=== PATIENT | female | born 1985 | race American Indian/Alaskan Native ===

== ENCOUNTER 2017-02-09 20:59 | Inpatient (IN) | payer OTHER ==
--- NOTE | 2017-02-10 01:28 | Emergency Department Report ---
HPI - General Chief Complaint: Altered Mental Status Time Seen by Provider: 02/10/17 01:14 - HPI HPI: Room 3 The patient is a 31-year-old female presenting with a chief complaint of lightheadedness and chest pain. The patient states for one week she is intermittent lightheadedness associated with feeling as though she is "detached " from reality. The patient states these symptoms usually come about as she is up and moving around. The patient states today she developed intermittent substernal chest heaviness associated with shortness of breath. Patient denies nausea/vomiting or diaphoresis. The patient states she's never had a stress test or cardiac catheterization Location: [see above] Duration: [see above] Quality: Heaviness Severity: Moderate Modifying factors: [see above] Context: [see above] Mode of transportation: [not driving] ED Past Medical Hx - Past Medical History Hx Psychiatric Treatment: Yes (anxiety) - Surgical History Past Surgical History?: No - Family History Family history: no significant - Social History Smoking Status: Never Smoker Substance Use Type: None (denies illicit drug use), Alcohol (occasional) - Medications Home Medications: Home Medications Medication Instructions Recorded Confirmed Last Taken Type Magnesium Oxide 250 mg PO QHS 02/10/17 02/10/17 Unknown History Sertraline HCl [Zoloft] 150 mg PO QDAY 02/10/17 02/10/17 Unknown History ED Review of Systems ROS: Stated complaint: SOB, CONFUSION Other details as noted in HPI Comment: All other systems reviewed and negative Constitutional: denies: chills, diaphoresis, fever Eyes: denies: eye pain, eye discharge, vision change ENT: denies: ear pain, throat pain Respiratory: shortness of breath Cardiovascular: chest pain Endocrine: no symptoms reported Gastrointestinal: denies: abdominal pain, nausea, diarrhea Genitourinary: denies: urgency, dysuria, discharge Musculoskeletal: denies: back pain, joint swelling, arthralgia Skin: denies: rash, lesions Neurological: other (lightheadedness). denies: headache Psychiatric: denies: anxiety, depression Hematological/Lymphatic: denies: easy bleeding, easy bruising Physical Exam - Physical Exam Vital Signs: Vital Signs 02/09/17 02/10/17 21:09 00:26 Temperature 99.3 F 99.1 F Pulse Rate 83 64 Respiratory 20 14 Rate Blood Pressure 129/81 Blood Pressure 121/70 [Left] O2 Sat by Pulse 99 99 Oximetry Physical Exam: GENERAL: The patient is well-developed well-nourished female lying on stretcher not appearing to be in acute distress. [] HEENT: Normocephalic. Atraumatic. Extraocular motions are intact. Patient has moist mucous membranes. NECK: Supple. No meningitic signs are noted. Trachea midline CHEST/LUNGS: Clear to auscultation. There is no respiratory distress noted. HEART/CARDIOVASCULAR: Regular. There is no tachycardia. There is no gallop rub or murmur. ABDOMEN: Abdomen is soft, nontender. Patient has normal bowel sounds. There is no abdominal distention. SKIN: There is no rash. There is no edema. There is no diaphoresis. NEURO: The patient is awake, alert, and oriented. The patient is cooperative. The patient has no focal neurologic deficits. The patient has normal speech. Cranial nerves II through XII grossly intact, no drift MUSCULOSKELETAL: There is no evidence of acute injury. ED Course Vital Signs 02/09/17 02/10/17 21:09 00:26 Temperature 99.3 F 99.1 F Pulse Rate 83 64 Respiratory 20 14 Rate Blood Pressure 129/81 Blood Pressure 121/70 [Left] O2 Sat by Pulse 99 99 Oximetry ED Medical Decision Making - Lab Data Result diagrams: 02/10/17 01:24 02/10/17 01:24 Laboratory Tests 02/10/17 02/10/17 02/10/17 01:24 01:24 01:24 WBC 7.0 RBC 5.21 H Hgb 14.8 H Hct 46.0 H MCV 88 MCH 28 MCHC 32 RDW 12.7 L Plt Count 296 Lymph % (Auto) 38.2 H [place] % (Auto) 5.0 Eos % (Auto) 0.7 Baso % (Auto) 0.6 Lymph # 2.7 [place] # 0.4 Eos # 0.0 Baso # 0.0 Seg Neutrophils % 55.5 Seg Neutrophils # 3.9 Sodium 139 Potassium 4.3 Chloride 100.9 Carbon Dioxide 24 Anion Gap 18 BUN 14 Creatinine 0.7 Estimated GFR > 60 BUN/Creatinine Ratio 20 Glucose 86 Calcium 9.5 Total Creatine Kinase 61 CK-MB (CK-2) < 1.0 CK-MB (CK-2) Rel Index 1.6 Troponin T < 0.010 HCG, Qual Negative - EKG Data -: EKG Interpreted by Me EKG shows normal: sinus rhythm Rate: normal - EKG Data When compared to previous EKG there are: previous EKG unavailable Interpretation: other (no ischemic changes seen) - Radiology Data Radiology results: report reviewed (CT head), image reviewed (chest x-ray, CT head) interpreted by me: Chest x-ray-no focal infiltrates, no pneumothorax CT head (read by radiologist)-normal examination - Differential Diagnosis ACS, GERD, pericarditis, ICH, migraine, vertigo Critical care attestation.: If time is entered above; I have spent that time in minutes in the direct care of this critically ill patient, excluding procedure time. ED Disposition Clinical Impression: Chest heaviness, Lightheadedness Disposition: 09 OP ADMIT IP TO THIS HOSP Is pt being admited?: Yes Does the pt Need Aspirin: Yes Condition: Fair Instructions: Chest Pain (ED) Referrals: CRAIG MEZA MD [Other] - 3-5 Days Time of Disposition: 03:40 (hospitalist paged)
[2017-02-10 01:43] LABS: Basophils % (Auto) 0.6 % (0.0-1.8); Eosinophils % (Auto) 0.7 % (0.0-4.3); Hemoglobin 14.8 gm/dl (10.1-14.3); Mean Corpuscular HGB Conc 32 % (30-34); Mean Corpuscular Hemoglobin 28 pg (28-32); Mean Corpuscular Volume 88 fl (79-97); Red Blood Count 5.21 M/mm3 (3.65-5.03); Red Cell Distribution Width 12.7 % (13.2-15.2)
[2017-02-10 01:54] LABS: Platelet Count 296 K/mm3 (140-440)
[2017-02-10 02:25] LABS: Creatine Kinase MB < 1.0 ng/mL (0.0-4.0)
[2017-02-10 02:26] LABS: Anion Gap 18 mmol/L; BUN/Creatinine Ratio 20; Blood Urea Nitrogen 14 mg/dL (7-17); Calcium 9.5 mg/dL (8.4-10.2); Carbon Dioxide 24 mmol/L (22-30); Chloride 100.9 mmol/L (98-107); Creatine Kinase 61 units/L (30-135); Glucose 86 mg/dL (65-100); Potassium 4.3 mmol/L (3.6-5.0); Sodium 139 mmol/L (137-145)
--- NOTE | 2017-02-10 03:33 | Cat Scan Report ---
FINAL REPORT PROCEDURE: CT HEAD/BRAIN WO CON TECHNIQUE: Computerized tomography of the head was performed without contrast material. HISTORY: lightheadedness COMPARISON: No prior studies are available for comparison. FINDINGS: Skull and scalp: Normal. Paranasal sinuses: Normal. Ventricles and subarachnoid spaces: Normal. Cerebrum: No evidence of hemorrhage, acute infarction or mass . Cerebellum and brainstem: No evidence of hemorrhage, acute infarction or mass. Vasculature: Normal. Comments: None. IMPRESSION: Normal Examination
--- NOTE | 2017-02-10 07:50 | XRay Report ---
Single view chest: History: Chest pain. Findings: Normal cardiomediastinal silhouette the trachea is midline. No consolidation, pneumothorax or pleural effusion. Impression: No acute cardiopulmonary findings.
[2017-02-10] MEDS ORDERED: MILK OF MAGNESIA PO PRN (09:00)
[2017-02-10] MEDS ORDERED: MORPHINE IV PRN (09:00)
[2017-02-10] MEDS ORDERED: TYLENOL PO PRN (09:00)
[2017-02-10] MEDS ORDERED: NITROSTAT SL PRN (09:00)
[2017-02-10] MEDS ORDERED: DULCOLAX PR PRN (10:00)
[2017-02-10] MEDS ORDERED: SERTRALINE HCL 150 MG PO SCH (10:00)
[2017-02-10] MEDS: ASPIRIN PO SCH (12:37)
[2017-02-10] MEDS: ZOLOFT PO SCH ×2 (13:42)
--- NOTE | 2017-02-10 15:28 | History and Physical Report ---
<KLAUS BARONE - Last Filed: 02/10/17 15:35> History of Present Illness Date of examination: 02/10/17 Date of admission: 02/10/17 08:32 Chief complaint: Chest Pain History of present illness: Patient is a 31-year-old black female with a past medical history of anxiety who presents to emergency department for complaining of Midsternal chest pain.Until yesterday patient was at her normal baseline state of health. She states that the pain began yesterday intermittent left side chest pain. The pain was located over her substerna somewhat in the left epigastric area. Patient described as, heaviness and tightness chest pain non- radiating. The pain lasted for few hours. Pain increased with palpation, there is no reliving factors. The painful episodes did not increase in intensity or severity during this time. The patient denies chest pain at present time. She denies vomiting during these episodes of pain. Patient reported nausea and diaphoresis including feeling clammy. Also developed difficulty of breathing. She continued to have several episodes of the pain throughout the night, he decided to come to the emergency department. Past History Past Medical History: other (anxiety) Past Surgical History: No surgical history Social history: denies: smoking, alcohol abuse Family history: diabetes, hypertension Medications and Allergies Allergies Allergy/AdvReac Type Severity Reaction Status Date / Time No Known Allergies Allergy Verified 02/09/17 21:11 Home Medications Medication Instructions Recorded Confirmed Last Taken Type Magnesium Oxide 250 mg PO QHS 02/10/17 02/10/17 Unknown History Sertraline HCl [Zoloft] 150 mg PO QDAY 02/10/17 02/10/17 Unknown History Active Meds: Active Medications Acetaminophen (Tylenol) 650 mg PO Q4H PRN PRN Reason: Pain MILD(1-3)/Fever >100.5/ERNANDEZ Aspirin (Aspirin) 325 mg PO DAILY [facility] Last Admin: 02/10/17 12:37 Dose: 325 mg Bisacodyl (Dulcolax) [address] QDAY PRN PRN Reason: Constipation unrelieved by MOM Magnesium Hydroxide (Milk Of Magnesia) 30 ml PO Q4H PRN PRN Reason: Constipation Miscellaneous Medication (Magnesium Oxide [Magnesium Oxide]) 250 mg PO QHS [facility] Morphine Sulfate (Morphine) 2 mg IV Q4H PRN PRN Reason: Pain, Moderate (4-6) Nitroglycerin (Nitrostat) 0.4 mg SL .Q5MIN PRN PRN Reason: Chest Pain Sertraline HCl (Zoloft) 100 mg PO QDAY [facility] Last Admin: 02/10/17 13:42 Dose: 100 mg Sertraline HCl (Zoloft) 50 mg PO QDAY [facility] Last Admin: 02/10/17 13:42 Dose: 50 mg Review of Systems Constitutional: no weight loss, no weight gain, no fever, no chills, no sweats, no night sweats Ears, nose, mouth and throat: no ear pain, no ear discharge, no tinnitis, no decreased hearing, no nose pain Breasts: no change in shape, no swelling Cardiovascular: chest pain, shortness of breath, dyspnea on exertion, no orthopnea, no palpitations, no rapid/irregular heart beat, no edema, no syncope , no lightheadedness Respiratory: no cough with sputum, no excessive sputum, no hemoptysis, no shortness of breath Gastrointestinal: no nausea, no vomiting, no diarrhea, no constipation, no change in bowel habits Genitourinary Female: no pelvic pain, no flank pain, no menorrhagia, no dysuria , no urinary frequency, no urgency Menstruation: no period heavy Rectal: no incontinence, no bleeding Musculoskeletal: no neck pain, no shooting arm pain, no arm numbness/tingling, no shooting leg pain Neurological: no paralysis, no weakness, no parathesias, no numbness, no tingling Psychiatric: no change in sleep habits, no sleep disturbances, no insomnia, no hypersomnia, no change in appetite Endocrine: no polyphagia, no excessive thirst, no polydipsia, no polyuria Hematologic/Lymphatic: no easy bruising, no easy bleeding Allergic/Immunologic: no urticaria, no allergic rhinitis, no wheezing Exam - Constitutional Vitals: Temp Pulse Resp BP Pulse Ox 99.1 F 72 17 105/63 100 02/10/17 00:26 02/10/17 13:31 02/10/17 13:31 02/10/17 13:31 02/10/17 13:31 General appearance: Present: mild distress - EENT Eyes: Present: PERRL ENT: hearing intact - Neck Neck: Present: supple - Respiratory Respiratory effort: normal Respiratory: bilateral: CTA - Cardiovascular Rhythm: regular Heart Sounds: Present: S1 & S2 - Extremities Extremities: no ischemia Peripheral Pulses: within normal limits - Abdominal General gastrointestinal: Present: soft, non-tender Female genitourinary: Present: deferred - Rectal Rectal Exam: deferred - Integumentary Integumentary: Present: clear, warm, dry - Musculoskeletal Musculoskeletal: strength equal bilaterally - Psychiatric Psychiatric: appropriate mood/affect - Neurologic Neurologic: CNII-XII intact - Allied Health Allied health notes reviewed: nursing Results - Labs CBC & Chem 7: 02/10/17 01:24 02/10/17 01:24 Labs: Laboratory Last Values WBC 7.0 K/mm3 (4.5-11.0) 02/10/17 01:24 RBC 5.21 M/mm3 (3.65-5.03) H 02/10/17 01:24 Hgb 14.8 gm/dl (10.1-14.3) H 02/10/17 01:24 Hct 46.0 % (30.3-42.9) H 02/10/17 01:24 MCV 88 fl (79-97) 02/10/17 01:24 MCH 28 pg (28-32) 02/10/17 01:24 MCHC 32 % (30-34) 02/10/17 01:24 RDW 12.7 % (13.2-15.2) L 02/10/17 01:24 Plt Count 296 K/mm3 (140-440) 02/10/17 01:24 Lymph % (Auto) 38.2 % (13.4-35.0) H 02/10/17 01:24 [place] % (Auto) 5.0 % (0.0-7.3) 02/10/17 01:24 Eos % (Auto) 0.7 % (0.0-4.3) 02/10/17 01:24 Baso % (Auto) 0.6 % (0.0-1.8) 02/10/17 01:24 Lymph # 2.7 K/mm3 (1.2-5.4) 02/10/17 01:24 [place] # 0.4 K/mm3 (0.0-0.8) 02/10/17 01:24 Eos # 0.0 K/mm3 (0.0-0.4) 02/10/17 01:24 Baso # 0.0 K/mm3 (0.0-0.1) 02/10/17 01:24 Seg Neutrophils % 55.5 % (40.0-70.0) 02/10/17 01:24 Seg Neutrophils # 3.9 K/mm3 (1.8-7.7) 02/10/17 01:24 Sodium 139 mmol/L (137-145) 02/10/17 01:24 Potassium 4.3 mmol/L (3.6-5.0) 02/10/17 01:24 Chloride 100.9 mmol/L (98-107) 02/10/17 01:24 Carbon Dioxide 24 mmol/L (22-30) 02/10/17 01:24 Anion Gap 18 mmol/L 02/10/17 01:24 BUN 14 mg/dL (7-17) 02/10/17 01:24 Creatinine 0.7 mg/dL (0.7-1.2) 02/10/17 01:24 Estimated GFR > 60 ml/min 02/10/17 01:24 BUN/Creatinine Ratio 20 % 02/10/17 01:24 Glucose 86 mg/dL (65-100) 02/10/17 01:24 Calcium 9.5 mg/dL (8.4-10.2) 02/10/17 01:24 Total Creatine Kinase 61 units/L (30-135) 02/10/17 01:24 CK-MB (CK-2) < 1.0 ng/mL (0.0-4.0) 02/10/17 01:24 CK-MB (CK-2) Rel Index 1.6 (0-4) 02/10/17 01:24 Troponin T < 0.010 ng/mL (0.00-0.029) 02/10/17 12:00 HCG, Qual Negative (Negative) 02/10/17 01:24 Assessment and Plan Assessment and plan: ASSESSMENT/PLAN Chest Pain We will admit to telemetry floor. EKG normal sinus rate [address] elevation or T-wave inversion. Negative cardiac enzyme X3 Start on aspirin Nitroglycerin when necessary Morphine ordered for pain Nothing by mouth after midnight. Stress test ordered. Anxiety Resume Zoloft and magnesium. DVT prophylaxis Lovenox Advance Directives: Yes VTE prophylaxis?: Chemical Contraindication Mechanical VTE Prophylaxis: Treatment Not Indicated Plan of care discussed with patient/family: Yes <TRAVIS OCHOA R - Last Filed: 02/11/17 10:42> History of Present Illness Date of admission: 02/10/17 08:32 Medications and Allergies Active Meds: Active Medications Acetaminophen (Tylenol) 650 mg PO Q4H PRN PRN Reason: Pain MILD(1-3)/Fever >100.5/ERNANDEZ Last Admin: 02/10/17 22:45 Dose: 650 mg Albuterol (Proventil) 2.5 mg IH Q6HRT [facility] Last Admin: 02/11/17 08:39 Dose: Not Given Aspirin (Aspirin) 325 mg PO DAILY [facility] Last Admin: 02/10/17 12:37 Dose: 325 mg Bisacodyl (Dulcolax) [address] QDAY PRN PRN Reason: Constipation unrelieved by MOM Lorazepam (Ativan) 0.5 mg IV Q6H PRN PRN Reason: Anxiety Last Admin: 02/10/17 23:08 Dose: 0.25 mg Magnesium Hydroxide (Milk Of Magnesia) 30 ml PO Q4H PRN PRN Reason: Constipation Magnesium Oxide (Mag-Ox) 400 mg PO QHS [facility] Last Admin: 02/10/17 22:46 Dose: 400 mg Morphine Sulfate (Morphine) 2 mg IV Q4H PRN PRN Reason: Pain, Moderate (4-6) Nitroglycerin (Nitrostat) 0.4 mg SL .Q5MIN PRN PRN Reason: Chest Pain Pneumococcal Polyvalent Vaccine (Pneumovax 23) 0.5 ml IM .ONCE ONE Stop: 02/11/17 12:01 Sertraline HCl (Zoloft) 100 mg PO QDAY [facility] Last Admin: 02/10/17 13:42 Dose: 100 mg Sertraline HCl (Zoloft) 50 mg PO QDAY [facility] Last Admin: 02/10/17 13:42 Dose: 50 mg Exam - Constitutional Vitals: Temp Pulse Resp BP Pulse Ox 98.2 F 85 19 101/59 99 02/11/17 05:17 02/11/17 01:38 02/11/17 05:17 02/11/17 05:17 02/11/17 05:17 Results - Labs CBC & Chem 7: 02/11/17 04:59 02/11/17 04:59 Labs: Laboratory Last Values WBC 6.3 K/mm3 (4.5-11.0) 02/11/17 04:59 RBC 4.56 M/mm3 (3.65-5.03) 02/11/17 04:59 Hgb 13.4 gm/dl (10.1-14.3) 02/11/17 04:59 Hct 40.2 % (30.3-42.9) 02/11/17 04:59 MCV 88 fl (79-97) 02/11/17 04:59 MCH 29 pg (28-32) 02/11/17 04:59 MCHC 33 % (30-34) 02/11/17 04:59 RDW 13.0 % (13.2-15.2) L 02/11/17 04:59 Plt Count 251 K/mm3 (140-440) 02/11/17 04:59 Lymph % (Auto) 35.7 % (13.4-35.0) H 02/11/17 04:59 [place] % (Auto) 7.4 % (0.0-7.3) H 02/11/17 04:59 Eos % (Auto) 0.4 % (0.0-4.3) 02/11/17 04:59 Baso % (Auto) 0.5 % (0.0-1.8) 02/11/17 04:59 Lymph # 2.2 K/mm3 (1.2-5.4) 02/11/17 04:59 [place] # 0.5 K/mm3 (0.0-0.8) 02/11/17 04:59 Eos # 0.0 K/mm3 (0.0-0.4) 02/11/17 04:59 Baso # 0.0 K/mm3 (0.0-0.1) 02/11/17 04:59 Seg Neutrophils % 56.0 % (40.0-70.0) 02/11/17 04:59 Seg Neutrophils # 3.5 K/mm3 (1.8-7.7) 02/11/17 04:59 Sodium 141 mmol/L (137-145) 02/11/17 04:59 Potassium 3.8 mmol/L (3.6-5.0) 02/11/17 04:59 Chloride 103.0 mmol/L (98-107) 02/11/17 04:59 Carbon Dioxide 22 mmol/L (22-30) 02/11/17 04:59 Anion Gap 20 mmol/L 02/11/17 04:59 BUN 16 mg/dL (7-17) 02/11/17 04:59 Creatinine 0.7 mg/dL (0.7-1.2) 02/11/17 04:59 Estimated GFR > 60 ml/min 02/11/17 04:59 BUN/Creatinine Ratio 23 % 02/11/17 04:59 Glucose 99 mg/dL (65-100) 02/11/17 04:59 Calcium 8.9 mg/dL (8.4-10.2) 02/11/17 04:59 Total Creatine Kinase 61 units/L (30-135) 02/10/17 01:24 CK-MB (CK-2) < 1.0 ng/mL (0.0-4.0) 02/10/17 01:24 CK-MB (CK-2) Rel Index 1.6 (0-4) 02/10/17 01:24 Troponin T < 0.010 ng/mL (0.00-0.029) 02/10/17 12:00 HCG, Qual Negative (Negative) 02/10/17 01:24 Assessment and Plan Assessment and plan: I saw and evaluated the patient on 02/10/17. I agree with the findings and the plan of care as documented in the Nurse Practitioner's~note.
[2017-02-10] MEDS: PROVENTIL IH SCH (20:26)
[2017-02-10] MEDS ORDERED: PROVENTIL IH ONE (20:28)
[2017-02-10] MEDS ORDERED: MAGNESIUM OXIDE 250 MG PO SCH (22:00)
[2017-02-10] MEDS: MAG-OX PO SCH (22:46)
[2017-02-10] MEDS ORDERED: ATIVAN IV PRN (22:49)
[2017-02-11] MEDS: PROVENTIL IH SCH ×4 (01:37→20:05)
[2017-02-11 05:35] LABS: Basophils % (Auto) 0.5 % (0.0-1.8); Eosinophils % (Auto) 0.4 % (0.0-4.3); Hematocrit 40.2 % (30.3-42.9); Hemoglobin 13.4 gm/dl (10.1-14.3); Mean Corpuscular HGB Conc 33 % (30-34); Mean Corpuscular Hemoglobin 29 pg (28-32); Mean Corpuscular Volume 88 fl (79-97); Platelet Count 251 K/mm3 (140-440); Red Blood Count 4.56 M/mm3 (3.65-5.03); White Blood Count 6.3 K/mm3 (4.5-11.0)
[2017-02-11 05:49] LABS: Anion Gap 20 mmol/L; BUN/Creatinine Ratio 23; Blood Urea Nitrogen 16 mg/dL (7-17); Calcium 8.9 mg/dL (8.4-10.2); Carbon Dioxide 22 mmol/L (22-30); Glucose 99 mg/dL (65-100); Potassium 3.8 mmol/L (3.6-5.0); Sodium 141 mmol/L (137-145)
[2017-02-11] MEDS ORDERED: PROVENTIL IH ONE (11:20)
[2017-02-11] MEDS ORDERED: PNEUMOVAX 23 IM ONE (12:00)
[2017-02-11] MEDS: ASPIRIN PO SCH (12:06)
[2017-02-11] MEDS: ZOLOFT PO SCH ×6 (12:07→21:22)
--- NOTE | 2017-02-11 13:28 | Discharge Summary ---
<KLAUS BARONE - Last Filed: 02/11/17 13:48> Providers - Providers Date of Admission: 02/10/17 08:32 Date of discharge: 02/11/17 Attending physician: TRAVIS OCHOA Hospitalization Condition: Good Hospital course: Patient is a 31-year-old black female with a past medical history of anxiety who presents to emergency department for complaining of Midsternal chest pain.Until yesterday patient was at her normal baseline state of health. She states that the pain began yesterday intermittent left side chest pain. The pain was located over her substerna somewhat in the left epigastric area. Patient was diagnosed with chest pain and anxiety.Patient presented with atypical chest pain, ACS was ruled out, stress test normal MPI, negative cardiac enzymes, ECGs shows normal sinus rythm, CXR was wnl. Patient chest pain probably from musculoskeletal. She was treated with IV fluid and antiaxiety. She is being discharged on oral Ibuprofen. Patient is clinically improved and no chest pain at present time. Patient advised to follow-up with her primary care provider. Discharge Diagnosed Chest Pain due to Costochondritis Anxiety Disposition: DC- TO HOME OR SELFCARE Time spent for discharge: 33 minutes Core Measure Documentation - Palliative Care Palliative Care/ Comfort Measures: Not Applicable - Core Measures Any of the following diagnoses?: none Exam - Constitutional Vitals: Temp Pulse Resp BP Pulse Ox 98.2 F 81 20 101/59 99 02/11/17 05:17 02/11/17 11:50 02/11/17 11:45 02/11/17 05:17 02/11/17 10:00 General appearance: Present: no acute distress - EENT Eyes: Present: PERRL ENT: hearing intact, clear oral mucosa - Neck Neck: Present: supple - Respiratory Respiratory effort: normal Respiratory: bilateral: CTA - Cardiovascular Rhythm: regular Heart Sounds: Present: S1 & S2 - Extremities Extremities: no ischemia Peripheral Pulses: within normal limits - Abdominal General gastrointestinal: Present: soft, non-tender Female genitourinary: Present: deferred - Rectal Rectal Exam: deferred - Integumentary Integumentary: Present: clear, warm, dry - Musculoskeletal Musculoskeletal: strength equal bilaterally - Psychiatric Psychiatric: appropriate mood/affect - Neurologic Neurologic: CNII-XII intact - Allied Health Allied health notes reviewed: nursing Plan Activity: no restrictions Weight Bearing Status: Weight Bear as Tolerated Diet: low fat Follow up with: CRAIG MEZA MD [Other] - 3-5 Days Prescriptions: ALBUTEROL NEB's [Proventil 0.083% NEBS] 2.5 mg IH Q6HRT #30 nebu <TRAVIS OCHOA - Last Filed: 02/11/17 17:27> Providers - Providers Date of Admission: 02/10/17 08:32 Attending physician: TRAVIS OCHOA Exam - Constitutional Vitals: Temp Pulse Resp BP Pulse Ox 98.2 F 88 16 109/67 99 02/11/17 17:21 02/11/17 17:21 02/11/17 17:21 02/11/17 17:21 02/11/17 17:21 Plan Durable Medical Equipment Needed Upon Discharge: Nebulizer
--- NOTE | 2017-02-11 14:17 | Treadmill Report ---
NUCLEAR PERFUSION STUDY REASON FOR STUDY: Shortness of breath. READING PHYSICIAN: Papa Jimenez MD IMAGING PROTOCOL: The patient received 10 mCi of Technetium 99m Tetrofosmin for resting image and 28 mCi of Technetium 99m Tetrofosmin for stress imaging. The imaging for the whole procedure was completed 30-90 minutes following the initial injection of Technetium 99m tetrofosmin. The SPECT imaging in the 180 degree arc was performed in the right anterior oblique projection. Computerized reconstruction of the images was performed for analysis. IMAGING RESULTS: Normal cavity size from stress to rest. Normal distribution of radionuclide in the anterior, inferior, septal, and apical regions. Gated SPECT, EF 62% with no wall motion abnormalities. The patient exercised on Flip protocol for 8 minutes and 30 seconds. The patient had no EKG changes. SUMMARY: 1. Negative treadmill EKG. 2. Fair to good exercise capacity 8 minutes 30 seconds on Flip protocol. 3. No exaggerated BP response to exercise. 4. Normal rest and stress myocardial perfusion scan. No significant stress ischemia. No wall motion abnormality. Gated SPECT, ejection fraction 62%. JOB# [id number] JOHNSON/SAMANTHA
[2017-02-11 19:57] VITALS: BP 108/51
[2017-02-11] MEDS: MAG-OX PO SCH (21:22)
== END 2017-02-11 22:15 | disposition home or self-care (01) | DRG 206 ==
LOC: ED 20:59 → 4A 02-10 08:32
PROVIDERS: ADMIT Internal Medicine; ATTEND Internal Medicine
PROC: 3E0234Z Introduction of Serum, Toxoid and Vaccine into Muscle, Percutaneous Approach (ICD-10-PCS; principal; 2017-02-11)
DX: M94.0 Chondrocostal junction syndrome [Tietze] (principal); F41.9 Anxiety disorder, unspecified; Z23 Encounter for immunization; Z72.89 Other problems related to lifestyle; Z79.899 Other long term (current) drug therapy; Z82.49 Family history of ischemic heart disease and other diseases of the circulatory system; Z83.3 Family history of diabetes mellitus
CPT/HCPCS: 36415; 70450; 71010; 78452; 80048; 82550; 82553; 84484; 84703; 85025; 90732; 93005; 93010; 93017; 94640; 94760; A9502; J2060; J2270

== ENCOUNTER 2021-05-15 22:57 | Emergency (ER) | payer OTHER ==
[2021-05-16 06:09] LABS: Basophils % (Auto) 0.3 % (0.0-1.8); Eosinophils % (Auto) 0.8 % (0.0-4.3); Hematocrit 43.3 % (30.3-42.9); Hemoglobin 13.9 gm/dl (10.1-14.3); Lymphocytes # (Auto) 2.4 K/mm3 (1.2-5.4); Lymphocytes % (Auto) 40.8 % (13.4-35.0); Mean Corpuscular HGB Conc 32 % (30-34); Mean Corpuscular Volume 89 fl (79-97); Monocytes # (Auto) 0.4 K/mm3 (0.0-0.8); Monocytes % (Auto) 6.4 % (0.0-7.3); Platelet Count 327 K/mm3 (140-440); Red Blood Count 4.88 M/mm3 (3.65-5.03); Red Cell Distribution Width 14.3 % (13.2-15.2)
--- NOTE | 2021-05-16 06:19 | Event Note ---
ED Screening Note Date of service: 05/16/21 Time: 06:17 ED Screening Note: Patient is a 36-year-old -[place] female with no past medical history who complains of persistent intermittent lightheadedness, generalized weakness, and "feeling out of it". Patient states that she had similar feeling a while ago before being diagnosed with COVID-19 viral infection. Patient states that her symptoms have worsened in the last 2 days such that she feels "foggy and disoriented". Patient denies dizziness, syncope, chest pain, shortness of breath, nausea vomiting or diarrhea, abdominal pain, fever, chills, cough or seizures. This initial assessment/diagnostic orders/clinical plan/treatment(s) is/are subject to change based on patients health status, clinical progression and re- assessment by fellow clinical providers in the ED. Further treatment and workup at subsequent clinical providers discretion. Patient/guardian urged not to elope from the ED as their condition may be serious if not clinically assessed and managed. Initial orders include: CBC, CMP, UA, chest x-ray, hCG serum
[2021-05-16 06:28] LABS: Bilirubin,Urine NEG (Negative); Blood,Urine LG (Negative); Color,Urine Yellow (Yellow); Mucus,Urine FEW /HPF; Protein,Urine <15 mg/dL mg/dL (Negative); Urobilinogen,Urine < 2.0 mg/dL (<2.0)
[2021-05-16 06:32] LABS: Alanine Aminotransferase 14 units/L (7-56); Albumin 4.3 g/dL (3.9-5); Blood Urea Nitrogen 10 mg/dL (7-17); Calcium 9.7 mg/dL (8.4-10.2); Hemolysis Index 4
[2021-05-16 06:44] LABS: BUN/Creatinine Ratio 14
--- NOTE | 2021-05-16 07:05 | XRay Report ---
CHEST 1 VIEW INDICATION: cough. COMPARISON: 02/10/2017 FINDINGS: SUPPORT DEVICES: None. HEART: Within normal limits. LUNGS/PLEURA: No acute air space or interstitial disease. ADDITIONAL FINDINGS: None. IMPRESSION: 1. No acute findings. Signer Name: Titi Yip MD Signed: 05/16/2021 7:01 AM Workstation Name: [id number]
--- NOTE | 2021-05-16 07:39 | Emergency Department Report ---
ED General Adult HPI - General Chief complaint: Dizziness Stated complaint: DIZZINESS Time Seen by Provider: 05/16/21 07:28 Source: patient Mode of arrival: Ambulatory Limitations: No Limitations - History of Present Illness Initial comments: Patient is 36 years old female with no significant past medical history except for anxiety. Patient presented to the ER complaining of several weeks of dizziness and confusion. Patient denied any chest pain or shortness of breath. No weakness numbness or tingling sensation. Patient also denied any fever chi lls, abdominal pain, nausea or vomiting. Patient was admitted to this hospital in 2017 for similar complaint with negative work-up. -: days(s) - Related Data Home Medications Medication Instructions Recorded Confirmed Last Taken Magnesium Oxide 250 mg PO QHS 02/10/17 02/10/17 Unknown Sertraline HCl [Zoloft] 150 mg PO QDAY 02/10/17 02/10/17 Unknown Previous Rx's Medication Instructions Recorded Last Taken Type ALBUTEROL NEB's [Proventil 0.083% 2.5 mg IH Q6HRT #30 nebu 02/11/17 Unknown Rx NEBS] Magnesium Oxide [Mag-Ox] 400 mg PO QHS tablet 02/11/17 Unknown Rx Sertraline [Zoloft] 50 mg PO QDAY tablet 02/11/17 Unknown Rx Sertraline [Zoloft] 100 mg PO QDAY tablet 02/11/17 Unknown Rx Allergies Allergy/AdvReac Type Severity Reaction Status Date / Time No Known Allergies Allergy Verified 02/09/17 21:11 ED Review of Systems ROS: Stated complaint: DIZZINESS Other details as noted in HPI Comment: All other systems reviewed and negative Constitutional: denies: chills, fever Respiratory: denies: cough, shortness of breath, SOB with exertion Cardiovascular: denies: chest pain, palpitations Gastrointestinal: denies: abdominal pain, nausea, vomiting, diarrhea Musculoskeletal: denies: back pain Neurological: confusion. denies: headache, weakness, numbness, paresthesias Psychiatric: anxiety. denies: depression, auditory hallucinations, visual hallucinations, homicidal thoughts, suicidal thoughts ED Past Medical Hx - Past Medical History Previous Medical History?: Yes Hx Congestive Heart Failure: No Hx Diabetes: No Hx Psychiatric Treatment: Yes (anxiety) Hx Asthma: No Hx HIV: No - Surgical History Past Surgical History?: No - Social History Smoking Status: Never Smoker - Medications Home Medications: Home Medications Medication Instructions Recorded Confirmed Last Taken Type Magnesium Oxide 250 mg PO QHS 02/10/17 02/10/17 Unknown History Sertraline HCl [Zoloft] 150 mg PO QDAY 02/10/17 02/10/17 Unknown History ALBUTEROL NEB's [Proventil 0.083% 2.5 mg IH Q6HRT #30 nebu 02/11/17 Unknown Rx NEBS] Magnesium Oxide [Mag-Ox] 400 mg PO QHS tablet 02/11/17 Unknown Rx Sertraline [Zoloft] 50 mg PO QDAY tablet 02/11/17 Unknown Rx Sertraline [Zoloft] 100 mg PO QDAY tablet 02/11/17 Unknown Rx ED Physical Exam - General Limitations: No Limitations General appearance: alert, in no apparent distress, anxious - Head Head exam: Present: atraumatic, normocephalic, normal inspection - Eye Eye exam: Present: normal appearance - ENT ENT exam: Present: normal exam, normal orophraynx, mucous membranes moist - Neck Neck exam: Present: normal inspection, full ROM. Absent: tenderness, meningismus - Respiratory Respiratory exam: Present: normal lung sounds bilaterally - Cardiovascular Cardiovascular Exam: Present: regular rate, normal rhythm, normal heart sounds - GI/Abdominal GI/Abdominal exam: Present: soft, normal bowel sounds. Absent: distended, tenderness, guarding, rebound, rigid, organomegaly, mass, bruit, pulsatile mass, hernia - Extremities Exam Extremities exam: Present: normal inspection, full ROM, normal capillary refill. Absent: tenderness - Back Exam Back exam: Present: normal inspection, full ROM. Absent: CVA tenderness (R), CVA tenderness (L) - Neurological Exam Neurological exam: Present: alert, oriented X3, CN II-XII intact, normal gait, reflexes normal. Absent: motor sensory deficit - Psychiatric Psychiatric exam: Present: normal mood, anxious. Absent: agitated, homicidal ideation, suicidal ideation - Skin Skin exam: Present: warm, intact, normal color ED Course Vital Signs 05/15/21 22:59 Temperature 98.0 F Pulse Rate 79 Respiratory 18 Rate Blood Pressure 102/70 O2 Sat by Pulse 99 Oximetry ED Medical Decision Making - Lab Data Result diagrams: 05/16/21 05:29 05/16/21 05:29 - EKG Data -: EKG Interpreted by [place] EKG shows normal: sinus rhythm Rate: normal - EKG Data Interpretation: no acute changes - Radiology Data Radiology results: report reviewed - Medical Decision Making Patient is 36 years old female with no significant past medical history except for anxiety. Patient presented to the ER complaining of several weeks of dizziness and confusion. Patient denied any chest pain or shortness of breath. No weakness numbness or tingling sensation. Patient also denied any fever chills, abdominal pain, nausea or vomiting. Patient was admitted to this hospital in 2017 for similar complaint with negative work-up. Labs reviewed and is unremarkable. Previous records reviewed and is unremarkable. Patient advised to follow-up with her primary care physician for outpatient work-up. Patient also advised to return to the ER if she develop any new symptoms or if her symptoms get worse. Critical care attestation.: If time is entered above; I have spent that time in minutes in the direct care of this critically ill patient, excluding procedure time. ED Disposition Clinical Impression: Lightheadedness Disposition: 01 HOME / SELF CARE / HOMELESS Is pt being admited?: No Condition: Stable Instructions: Dizziness, [id number] Referrals: PRIMARY CARE, [Primary Care Provider] - 3-5 Days
[2021-05-16 08:10] VITALS: BP 116/68
== END 2021-05-16 08:11 | disposition home or self-care (01) ==
LOC: ED 22:57
DX: R42 Dizziness and giddiness (principal); F41.9 Anxiety disorder, unspecified
CPT/HCPCS: 36415; 71045; 80053; 81001; 84703; 85025; 99283